=== PATIENT | male | born 1980 | race Caucasian/White ===

== ENCOUNTER 2017-04-20 16:34 | Emergency (ER) | payer OTHER ==
[2017-04-20 17:09] VITALS: BP 123/79
--- NOTE | 2017-04-20 18:00 | EDM.PDOC ---
ED HPI GENERAL MEDICAL PROBLEM - General Chief Complaint: Lower Extremity Injury/Pain Stated Complaint: ANKLE INJURY Time Seen by Provider: 04/20/17 16:35 Source of Information: Reports: Patient History Limitations: Reports: No Limitations - History of Present Illness INITIAL COMMENTS - FREE TEXT/NARRATIVE: Was sliding into base while playing baseball. Landed on ankle and ankle became everted laterally at a ninety degree angle. Patients cousin who was a doctor was there and reduced the ankle and taped it. Patient was then brought to the ER Onset: Today, Sudden Onset Date: 04/20/17 Duration: Minutes: Location: Reports: Lower Extremity, Right Quality: Reports: Ache, Throbbing Severity: Moderate Improves with: Reports: Immobilization Worsens with: Reports: None Context: Reports: Trauma Associated Symptoms: Reports: No Other Symptoms Right Ankle Pain Score (Numeric/FACES): 5 - Related Data Allergies Allergy/AdvReac Type Severity Reaction Status Date / Time No Known Allergies Allergy Verified 04/20/17 16:57 Home Meds: Home Meds . [Unable to Verify Home Med List] 04/20/17 [History] Past Medical History Endocrine/Metabolic History: Reports: Diabetes, Type I - Past Surgical History HEENT Surgical History: Reports: Oral Surgery Social & Family History - Tobacco Use Smoking Status *Q: Never Smoker - Alcohol Use Days Per Week of Alcohol Use: 7 Number of Drinks Per Day: 2 Total Drinks Per Week: 14 - Recreational Drug Use Recreational Drug Use: No Review of Systems - Review of Systems Review Of Systems: See Below Constitutional: Reports: No Symptoms Eyes: Reports: No Symptoms Ears: Reports: No Symptoms Nose: Reports: No Symptoms Mouth/Throat: Reports: No Symptoms Respiratory: Reports: No Symptoms Cardiovascular: Reports: No Symptoms GI/Abdominal: Reports: No Symptoms Genitourinary: Reports: No Symptoms Musculoskeletal: Reports: Joint Pain, Joint Swelling, Other (pain in right ankle after a trauma) Skin: Reports: No Symptoms Neurological: Reports: No Symptoms Psychiatric: Reports: No Symptoms ED EXAM, GENERAL - Physical Exam Exam: See Below Exam Limited By: No Limitations General Appearance: Alert, WD/WN, No Apparent Distress Eye Exam: Bilateral Eye: EOMI, PERRL Ears: Normal External Exam Respiratory/Chest: No Respiratory Distress Cardiovascular: Normal Peripheral Pulses, Regular Rate, Rhythm Peripheral Pulses: 3+: Dorsalis Pedis (L), Dorsalis Pedis (R) Extremities: Normal Inspection, Normal Range of Motion, Non-Tender, Other ( right leg was taped on arrival. Tape carefully ermoved while joing supported. Sensation and circulation intact. Joint not manipulated as xray showed trimalleolar fracture. No open or broke skin noted. Some edema present dorsal surface and bilmalleolar areas) Neurological: Alert, Oriented, CN II-XII Intact, Normal Cognition Psychiatric: Normal Affect, Normal Mood Skin Exam: Warm, Dry, Intact, Normal Color Lymphatic: No Adenopathy Course - Vital Signs Last Recorded V/S: Last Vital Signs Temp 36.6 C 04/20/17 16:34 Pulse 104 H 04/20/17 16:34 Resp 16 04/20/17 16:34 BP 123/79 04/20/17 16:34 Pulse Ox - Orders/Labs/Meds Orders: Active Orders 24 hr Category Date Time Status Ankle Min 3V Rt [CR] Stat Exams 04/20/17 16:52 Taken Meds: Medications Discontinued Medications Generic Name Dose Route Start Last Admin Trade Name Freq PRN Reason Stop Dose Admin Hydrocodone Bitart/Acetaminophen 1 packet 04/20/17 18:09 04/20/17 18:13 Take Home: Acetam/Hydrocodon 325-5 Mg, 5 Pack PO 04/20/17 18:10 1 packet ONETIME ONE Administration - Radiology Interpretation Free Text/Narrative:: X ray showed trimalleolar fracture as read by radiology. Mild widening of the ankle mortise. See report for further details - Re-Assessments/Exams Free Text/Narrative Re-Assessment/Exam: 04/20/17 18:24 Tape carefully removed after conversation with Dr Pimentel, orthopedist at [facility]. With proper support, tapae was carefully removed and ankle and foot examined. Good pulses noted with mild swelling. [place] place and Posterior short leg one step splint was placed and supported til set to maintain 90 angle of the foot. Patient fitted with and instructed on crutch use by RN. Departure - Departure Time of Disposition: 17:53 Disposition: Home, Self-Care 01 Condition: good Clinical Impression: Ankle fracture Qualifiers: Encounter type: initial encounter Fracture type: closed Laterality: right Qualified Code(s): S82.891A - Other fracture of right lower leg, initial encounter for closed fracture - Discharge Information Instructions: Ankle Fracture, Cast or Splint Care, [id number] Referrals: Kiran Fraga MD [Primary Care Provider] - Forms: ED Department Discharge Additional Instructions: You have a trimalleolar ankle fracture. Keep elevated as much as possible. Ice frequently. Do not bear weight on the ankle. Use crutches as directed. Call [facility] in [place] the first thing on Saturday at to make arrangements for surgery to repair your fracture. The physician I spoke with today was Dr Pimentel at [facility]. Use Tylenol or ibuprofen for moderate pain. Use hydrocone/apap sparingingly for severe pain. It has addictive potential. You may use one or two every 4-6 hors for pain. Do not mix with alcohol. Watch for constipation. Dont drive till you know how it will affect you. If your foot feels tight or swollen, come back in to ER and we would be happy to rewwrap it for you. ED Communication - Discussed Case With (1) Discussed Case With (1): Other (Consulted with Dr Pimentel at [facility] one call who reviewed xrays and advised patient will need surgical repair. He recomended placement of posterior short leg splint and patient is to contact [facility] in [place] Saturday to arrange to surgical repair of ankle.) - My Orders Last 24 Hours: My Active Orders 04/20/17 16:52 Ankle Min 3V Rt [CR] Stat - Assessment/Plan Last 24 Hours: My Active Orders 04/20/17 16:52 Ankle Min 3V Rt [CR] Stat
[2017-04-20] MEDS ORDERED: Take Home: Acetaminophen/HYDROcodone 325-5 MG, 5 Tab Pack PO ONE (18:09)
== END 2017-04-20 18:25 | disposition home or self-care (01) ==
LOC: VM.ED 16:34
DX: S82.851A Displaced trimalleolar fracture of right lower leg, initial encounter for closed fracture (principal); E10.9 Type 1 diabetes mellitus without complications; Z98.890 Other specified postprocedural states; X50.0XXA Overexertion from strenuous movement or load, initial encounter; Y93.64 Activity, baseball
CPT/HCPCS: 29515; 73610; 99283; A9270